=== PATIENT | female | born 1980 | race Caucasian/White ===

== ENCOUNTER 2018-03-17 21:02 | Emergency (ER) | payer SELFPAY ==
[2018-03-17 21:06] VITALS: BP 116/74; PULSE 84; RESP 15; TEMP 36.9; O2SAT 98
--- NOTE | 2018-03-17 21:40 | ED.GENADUL_ITS ---
Discharge Plan Discharge Details Chief Complaint: Headache Clinical Impression: Superficial swelling of scalp, Headache Reason For Visit: HEAD SWELLING Primary Care Provider: NONE,NONE ED Provider: Alexx Marroquin Disposition Patient Disposition: HOME Condition: Good Home Meds and New Rx's Prescriptions: Continue ascorbic acid (vitamin C) [Vitamin C] 500 mg Tablet 500 mg PO DAILY RF: 0 vitamin J07-gdhju acid 500-400 mcg Tablet 1 tab PO DAILY RF: 0 Discharge Instructions Additional Instructions: You may use Tylenol or Motrin as needed for discomfort. We will have care management work with you to get your primary care follow-up. Return to ED for fever, neurologic changes, worsening swelling/pain. Referrals: Care Management [Provider Group] Medical Decision Making <Arturo Brock NP - Last Filed: 03/17/18 22:00> MDM Narrative Medical decision making narrative: Patient presenting to the emergency department for chief complaint of scalp swelling and headache for the past 3 days. Patient denies any injury or trauma and states that it started out feeling like a small knot on her right frontal scalp and then over the last 3 days has grown in size and that she also noted some swelling to the left superior parietal area of the scalp. Patient denies any systemic systemic symptoms including fever chills, weight gain or weight loss, chest pain, shortness of breath, visual change, focal neurological deficits. Physical exam is unremarkable except for significant noted swelling to the right frontal scalp and left superior parietal scalp. Thorough evaluation to the hair revealed no signs of insect bite, no abscess, no erythema. There is of swelling are easily appreciated and palpable especially right frontal scalp. Physical exam is otherwise unremarkable and no other findings are noted. Given on nature that does not completely correlate with abscess, insect bite, or any trauma I do feel that CT imaging of the head is warranted. Given the patient has no other symptoms decided to defer labs unless needed or abnormalities are noted of significance on CT scan. HPI - General Adult <Arturo Brock NP - Last Filed: 03/17/18 22:00> General Mode of arrival: ambulatory . Date/Time Provider Initiated Documentation: 03/17/18 21:12 . Limitations to Documentation: no limitations . Information obtained by: patient . History of Present Illness 37 year old F presents to the emergency department with the chief complaint of swelling/headache, described as mild, with intensity rated at 5. Quality is described as aching, and is localized to the head. Patient reports no radiation. Patient started experiencing this day(s) (3) and it has been constant. No relieving factors improve symptom(s), No exacerbating factors reported . Patient notes no other symptoms.. Patient did receive the following treatments prior to arrival, NSAID Related Data Home Medications Medication Instructions Recorded Confirmed ascorbic acid (vitamin C) [Vitamin 500 mg PO DAILY 03/17/18 03/17/18 C] vitamin U71-sfzvp acid 1 tab PO DAILY 03/17/18 03/17/18 Allergies Allergy/AdvReac Type Severity Reaction Status Date / Time No Known Allergies Allergy Unverified 03/17/18 21:11 General Stated Complaint: Headache RAMIN: 3 Review of Systems <Arturo Brock NP - Last Filed: 03/17/18 22:00> Constitutional Denies body ache(s), Denies chills, Denies daytime sleepiness, Denies fatigue, Denies fever(s), Denies frequent falls, Reports headache(s) and Denies weakness Eyes Patient Reports system reviewed and no additional complaints, except as docu ENT Denies vertigo, Denies dizziness and Reports headache(s) Cardiovascular Denies chest pain and Denies syncope Respiratory Reports system reviewed and no additional complaints, except as docu and Denies cough Gastrointestinal Denies abdominal pain, Denies nausea and Denies vomiting Musculoskeletal Denies abnormal gait, Denies numbness and Denies tingling Integumentary/Breasts Reports skin swelling (Right forehead left posterior scalp) Neurologic Denies abnormal gait, Denies behavioral changes, Denies confusion, Denies vertigo, Denies dizziness, Denies syncope, Denies frequent falls, Reports headache(s), Denies lack of coordination, Denies focal weakness, Denies numbness , Denies tingling and Denies weakness Psychiatric Denies behavioral changes and Denies confusion Endocrine Denies fatigue Exam <Arturo Brock NP - Last Filed: 03/17/18 22:00> Const General: cooperative, healthy appearing, comfortable, no acute distress, well groomed, not diaphoretic and not ill appearing Nutritional Appearance: thin Orientation: alert, awake and oriented x3 Limitations: mental status not altered [facility] Head: no palpable skull fracture, atraumatic, no abrasions, no Negro's sign, no hematomas, no scalp lesions, scalp tenderness (To palpation of areas of swelling), no temporal artery tenderness and No periorbital ecchymosis Ears: hearing grossly normal bilaterally General nose exam: external nose normal Mouth: oral mucosae normal Throat: posterior oropharynx normal Eyes General: appearance normal, both eyes and all related structures Visual Mobley: normal visual mobley by confrontation Alignment and Position: alignment normal and alignment abnormal Periorbital: periorbital findings normal Eyelids: eyelids normal Pupils: PERRL EOM: EOM intact bilaterally Neck Neck: normal visual inspection, full ROM and lymphadenopathy noted Resp Effort & Inspection: normal respiratory effort, able to speak in complete sentences and no respiratory distress Skin General skin exam: no rashes or lesions noted, no ecchymosis and no erythema Rashes: no rashes Trauma: no lacerations or abrasions Wounds: no wounds Hair: normal Neuro General: oriented x3, moves all extremities, no meningeal signs, no focal motor deficits and CN's II-XI intact bilaterally Cranial Nerves: CN's II-XI intact bilaterally and PERRL Cognition: normal cognition Speech: speech normal Gait: normal gait Motor: muscle tone normal throughout and strength 5/5 throughout Extrem General: normal to inspection Course <Arturo Brock NP - Last Filed: 03/17/18 22:00> Vital Signs Temperature 36.9 C 03/17/18 21:06 Pulse 84 03/17/18 21:06 Respiratory Rate 15 03/17/18 21:06 Blood Pressure 116/74 03/17/18 21:06 Pulse Oximetry 98 03/17/18 21:06 Temperature 36.9 C 03/17/18 21:06 Pulse 84 03/17/18 21:06 Respiratory Rate 15 03/17/18 21:06 Blood Pressure 116/74 03/17/18 21:06 Pulse Oximetry 98 03/17/18 21:06 Sign Out <Arturo Brock NP - Last Filed: 03/17/18 22:00> Sign Out Data: Sign Out Comment: Pending CT imaging of the head and radiologist interpretation patient was signed out to Dr. Marroquin for revision of imaging, disposition of patient, any further treatment or stabilization is required. Physical exam was discussed with him along patient complained. Last updated by Arturo Brock NP at 03/17/18 21:57 Post-Handoff Eval: Patient's head CT is being read by radiology as unremarkable and normal soft tissues. There is no evidence of hematoma, abscess, infection, bony involvement. Brain is normal. Patient clearly does have some sort of edematous process going on but it is unclear what. Will refer her to primary care, which she does not have, so case management will need to be involved. If swelling does not resolve or continues will need further evaluation but at this point she appears safe and stable for discharge. We will have her use Tylenol or Motrin for discomfort.
--- NOTE | 2018-03-17 22:01 | DI.CT_ITS ---
SYMPTOMS/DIAGNOSIS: HEADACHE, SKULL SWELLING, NO KNOWN TRAUMA NONCONTRAST HEAD CT: No intracranial hemorrhage, mass or infarct is seen. There is no evidence of skull fracture. The ventricles are normal in size. The visualized portions of the sinuses and mastoid air cells appear clear. IMPRESSION: Negative head CT.
--- NOTE | 2018-03-17 22:12 | DI.VRAD_ITS ---
EXAM: CT Head Without Intravenous Contrast CLINICAL HISTORY: 37 years old, female; Signs and symptoms; Mass, lump, or localized swelling; Head or scalp; Patient HX: Headache, skull swelling - no known trauma TECHNIQUE: Axial computed tomography images of the head/brain without intravenous contrast. All CT scans at this facility use at least one of these dose optimization techniques: automated exposure control; mA and/or kV adjustment per patient size (includes targeted exams where dose is matched to clinical indication); or iterative reconstruction. Coronal and sagittal reformatted images were created and reviewed. COMPARISON: No relevant prior studies available. FINDINGS: Brain: Unremarkable. No hemorrhage. No significant white matter disease. No edema. Ventricles: Unremarkable. No ventriculomegaly. Bones/joints: Unremarkable. No acute fracture. Soft tissues: Unremarkable. Sinuses: Unremarkable as visualized. No acute sinusitis. Mastoid air cells: Unremarkable as visualized. No mastoid effusion. IMPRESSION: Normal head/brain CT. Dictated and Authenticated by: Iván Duffy MD. Ordering:KIMMIE CASE MD
== END 2018-03-17 22:38 | disposition home or self-care (01) ==
PROVIDERS: Emergency Provider Emergency Medicine
DX: R51 Headache (principal); R22.0 Localized swelling, mass and lump, head
CPT/HCPCS: 99284; 70450; 99281

== ENCOUNTER 2018-07-13 15:29 | Emergency (ER) | payer SELFPAY ==
[2018-07-13 15:37] VITALS: BP 117/66; PULSE 95; RESP 16; TEMP 36.6; O2SAT 100
--- NOTE | 2018-07-13 15:59 | DI.RAD_ITS ---
SYMPTOM/DIAGNOSIS: TRAUMA, CRUSH INJURY, PAIN LEFT THUMB: There is a soft tissue defect. There is a nondisplaced fracture of the tuft of the distal phalanx of the thumb. No foreign body is seen. IMPRESSION: Nondisplaced tuft fracture of the thumb.
--- NOTE | 2018-07-13 16:47 | DI.VRAD_ITS ---
EXAM: XR Left Finger(s), 2 or More Views EXAM DATE/TIME: 07/13/2018 4:16 PM CLINICAL HISTORY: 38 years old, female; Injury or trauma; Injury history: Wood splitter/crush; Initial encounter; Crushing; Finger; Left; Thumb; Injury date: 07/13/2018 TECHNIQUE: XR Left finger minimum 2 views. COMPARISON: No relevant prior studies available. FINDINGS: Bones/joints: Compound nondisplaced fracture of the thumb distal phalanx terminal tuft. No dislocation. Normal bone density. Soft tissues: Swelling and laceration of the thumb soft tissues. IMPRESSION: 1. Crush injury to the soft tissues of the left thumb. 2. Compound nondisplaced fracture of the distal phalanx terminal. Dictated and Authenticated by: Jordan Giron MD. Ordering:KIMMIE Morris MD
[2018-07-13] MEDS: Cephalexin 500 MG CAP PO (18:23)
[2018-07-13] MEDS: Lidocaine 2% Multi-Dose 20 ML VIAL IJ (18:24)
--- NOTE | 2018-07-13 18:41 | W.ED.GENAD ---
Discharge Plan Disposition Patient Disposition: HOME Condition: Stable Discharge Details Chief Complaint: Orthopedic Clinical Impression: Open fracture of left thumb Reason For Visit: left thumb / wood splitter Primary Care Provider: None,None ED Provider: Arturo Brock Home Meds and New Rx's Prescriptions: No Action ascorbic acid (vitamin C) [Vitamin C] 500 mg Tablet 500 mg PO DAILY RF: 0 vitamin V75-juzwq acid 500-400 mcg Tablet 1 tab PO DAILY RF: 0 Discharge Instructions Instructions: Thumb Fracture (ED) Additional Instructions: Please take antibiotic as prescribed and leave dressing on for the first 48 hours. After then you may remove dressing and keep wound clean and dry. Return to the emergency department for any new or significant worsening of symptoms otherwise call orthopedic office for arrangement of close follow-up appointment. You should return to the emergency department in 12 days for suture removal unless this will be performed by orthopedist. Referrals: Jose L Espinal MD [ [facility] STAFF PHYSICIAN] - (Call the office on Sunday morning for arrangement of follow-up appointment with orthopedist) Discharge Data Discharge Date/Time-TO BE ENTERED AT DEPARTURE: 07/13/18 19:30 Medical Decision Making Patient presenting the emergency department for chief complaint of crush injury to left thumb. Patient was splitting wood when her finger got in a wood splitter. X-ray imaging was ordered and shows a distal phalanx fracture. Patient has intact tendons along with two-point discrimination and appropriate cap refill. patient and gave verbal consent towards wound closure. Total of 7 mL's of 2% lidocaine was injected into the base of the thumb until appropriate anesthetic level was achieved. Patient has 6 cm irregular bordered laceration along with a 2 cm laceration. Wound was visualized to base in a bloodless field and irrigated thoroughly with copious amounts of sterile saline. No evidence of foreign body was noted 11 simple interrupted 4-0 Prolene, along with 7 4-0 Prolene for a total of 18 sutures. Wound was covered with sterile dressing and bacitracin applied. Patient was instructed to keep wound clean and dry. Patient placed up on Keflex 4 times daily for 3 days for prophylactic coverage of open distal phalanx fracture. Patient encouraged to return for any new or worsening symptoms otherwise follow-up with orthopedist for reassessment and return for suture removal. HPI General Mode of arrival: ambulatory. Date/Time Provider Initiated Documentation: 07/13/18 15:47. Limitations to Documentation: no limitations. Information obtained by: patient and RN notes reviewed. History of Present Illness 38 year old F presents to the emergency department with the chief complaint of Left thumb injury, described as moderate, with intensity rated at 4. Quality is described as sharp, and is localized to the left and upper extremity. Patient started experiencing this hour(s) (1) and it has been constant. No relieving factors improve symptom(s), Movement worsens symptoms . Patient notes no other symptoms.. Patient did receive the following treatments prior to arrival, none Related Data Home Medications Medication Instructions Recorded Confirmed ascorbic acid (vitamin C) [Vitamin 500 mg PO DAILY 03/17/18 03/17/18 C] vitamin K91-erfeg acid 1 tab PO DAILY 03/17/18 03/17/18 Allergies Allergy/AdvReac Type Severity Reaction Status Date / Time No Known Allergies Allergy Unverified 03/17/18 21:11 General Stated Complaint: Orthopedic RAMIN: 3 Review of Systems Cardiovascular Denies syncope Musculoskeletal Reports as per HPI, Reports deformity, Denies numbness and Reports tingling Integumentary/Breasts Reports wounds Neurologic Denies syncope, Denies numbness and Reports tingling PFSH Social History Smoking/Tobacco Use Status: Never Exam Const General: cooperative and no acute distress Orientation: alert, awake and oriented x3 Resp Effort & Inspection: normal respiratory effort and able to speak in complete sentences Cardio Rate: regular rate Rhythm: regular rhythm Extrem Left upper extremity: hand Details: normal capillary refill, neuromotor exam normal, neurosensory exam normal, tendon exam normal, tenderness Location: of the thumb, vascular exam Details: radial pulse present and normal capillary refill, normal ROM of fingers, swelling Location: of the thumb and laceration (2 lacerations to the palmar aspect of the thumb) Course Vital Signs Temperature 36.6 C 07/13/18 15:37 Pulse 95 H 07/13/18 15:37 Respiratory Rate 16 07/13/18 15:37 Blood Pressure 117/66 07/13/18 15:37 Pulse Oximetry 100 07/13/18 15:37 Temperature 36.6 C 07/13/18 15:37 Temperature Source Temporal Artery Scan 07/13/18 15:37 Pulse 95 H 07/13/18 15:37 Respiratory Rate 16 07/13/18 15:37 Respiratory Effort 07/13/18 15:42 Blood Pressure 117/66 07/13/18 15:37 Blood Pressure Position Supine 07/13/18 15:37 Pulse Oximetry 100 07/13/18 15:37 Oxygen Delivery Method Room Air 07/13/18 15:37 Oxygen Flow Rate 0 07/13/18 15:37 Pain Level 4 07/13/18 18:19 Procedures Laceration Laceration 1: Site: hand Side (If applicable): left Size (cm): 6 Description: stellate, irregular and clean Depth: simple, single layer Local Anesthetic: Lidocaine 2% (Digital block) Amount of anesthesia used (mL): 7 Pre-repair: wound explored, irrigated extensively, deep structures intact and wound margins revised Skin layer closed with: nylon Size (cm): 4-0 Number of sutures: 11 Technique: simple, interrupted Laceration 2: Site: hand Side (If applicable): left Size (cm): 2 Description: irregular and clean Depth: simple, single layer Pre-repair: wound explored, irrigated extensively and deep structures intact Skin layer closed with: nylon Size (cm): 4-0 Number of sutures: 7 Technique: simple, interrupted
--- NOTE | 2018-07-13 19:08 | ED.GENADUL_ITS ---
Discharge Plan Disposition Patient Disposition: HOME Condition: Stable Discharge Details Chief Complaint: Orthopedic Clinical Impression: Open fracture of left thumb Reason For Visit: left thumb / wood splitter Primary Care Provider: None,None ED Provider: Arturo Brock Home Meds and New Rx's Prescriptions: No Action ascorbic acid (vitamin C) [Vitamin C] 500 mg Tablet 500 mg PO DAILY RF: 0 vitamin O07-vsksw acid 500-400 mcg Tablet 1 tab PO DAILY RF: 0 Discharge Instructions Instructions: Thumb Fracture (ED) Additional Instructions: Please take antibiotic as prescribed and leave dressing on for the first 48 hours. After then you may remove dressing and keep wound clean and dry. Return to the emergency department for any new or significant worsening of symptoms otherwise call orthopedic office for arrangement of close follow-up appointment. You should return to the emergency department in 12 days for suture removal unless this will be performed by orthopedist. Referrals: Jose L Espinal MD [ [facility] STAFF PHYSICIAN] - (Call the office on Sunday morning for arrangement of follow-up appointment with orthopedist) Discharge Data Discharge Date/Time-TO BE ENTERED AT DEPARTURE: 07/13/18 19:30 Medical Decision Making Patient presenting the emergency department for chief complaint of crush injury to left thumb. Patient was splitting wood when her finger got in a wood splitter. X-ray imaging was ordered and shows a distal phalanx fracture. Patient has intact tendons along with two-point discrimination and appropriate cap refill. patient and gave verbal consent towards wound closure. Total of 7 mL's of 2% lidocaine was injected into the base of the thumb until appropriate anesthetic level was achieved. Patient has 6 cm irregular bordered laceration along with a 2 cm laceration. Wound was visualized to base in a bloodless field and irrigated thoroughly with copious amounts of sterile saline. No evidence of foreign body was noted 11 simple interrupted 4-0 Prolene, along with 7 4-0 Prolene for a total of 18 sutures. Wound was covered with sterile dressing and bacitracin applied. Patient was instructed to keep wound clean and dry. Patient placed up on Keflex 4 times daily for 3 days for prophylactic coverage of open distal phalanx fracture. Patient encouraged to return for any new or worsening symptoms otherwise follow-up with orthopedist for reassessment and return for suture removal. HPI General Mode of arrival: ambulatory . Date/Time Provider Initiated Documentation: 07/13/18 15:47 . Limitations to Documentation: no limitations . Information obtained by: patient and RN notes reviewed . History of Present Illness 38 year old F presents to the emergency department with the chief complaint of Left thumb injury, described as moderate, with intensity rated at 4. Quality is described as sharp, and is localized to the left and upper extremity. Patient started experiencing this hour(s) (1) and it has been constant. No relieving factors improve symptom(s), Movement worsens symptoms . Patient notes no other symptoms.. Patient did receive the following treatments prior to arrival, none Related Data Home Medications Medication Instructions Recorded Confirmed ascorbic acid (vitamin C) [Vitamin 500 mg PO DAILY 03/17/18 03/17/18 C] vitamin O74-bgeht acid 1 tab PO DAILY 03/17/18 03/17/18 Allergies Allergy/AdvReac Type Severity Reaction Status Date / Time No Known Allergies Allergy Unverified 03/17/18 21:11 General Stated Complaint: Orthopedic RAMIN: 3 Review of Systems Cardiovascular Denies syncope Musculoskeletal Reports as per HPI, Reports deformity, Denies numbness and Reports tingling Integumentary/Breasts Reports wounds Neurologic Denies syncope, Denies numbness and Reports tingling PFSH Social History Smoking/Tobacco Use Status: Never Exam Const General: cooperative and no acute distress Orientation: alert, awake and oriented x3 Resp Effort & Inspection: normal respiratory effort and able to speak in complete sentences Cardio Rate: regular rate Rhythm: regular rhythm Extrem Left upper extremity: hand Details: normal capillary refill, neuromotor exam normal, neurosensory exam normal, tendon exam normal, tenderness Location: of the thumb, vascular exam Details: radial pulse present and normal capillary refill, normal ROM of fingers, swelling Location: of the thumb and laceration (2 lacerations to the palmar aspect of the thumb) Course Vital Signs Temperature 36.6 C 07/13/18 15:37 Pulse 95 H 07/13/18 15:37 Respiratory Rate 16 07/13/18 15:37 Blood Pressure 117/66 07/13/18 15:37 Pulse Oximetry 100 07/13/18 15:37 Temperature 36.6 C 07/13/18 15:37 Temperature Source Temporal Artery Scan 07/13/18 15:37 Pulse 95 H 07/13/18 15:37 Respiratory Rate 16 07/13/18 15:37 Respiratory Effort 07/13/18 15:42 Blood Pressure 117/66 07/13/18 15:37 Blood Pressure Position Supine 07/13/18 15:37 Pulse Oximetry 100 07/13/18 15:37 Oxygen Delivery Method Room Air 07/13/18 15:37 Oxygen Flow Rate 0 07/13/18 15:37 Pain Level 4 07/13/18 18:19 Procedures Laceration Laceration 1: Site: hand Side (If applicable): left Size (cm): 6 Description: stellate, irregular and clean Depth: simple, single layer Local Anesthetic: Lidocaine 2% (Digital block) Amount of anesthesia used (mL): 7 Pre-repair: wound explored, irrigated extensively, deep structures intact and wound margins revised Skin layer closed with: nylon Size (cm): 4-0 Number of sutures: 11 Technique: simple, interrupted Laceration 2: Site: hand Side (If applicable): left Size (cm): 2 Description: irregular and clean Depth: simple, single layer Pre-repair: wound explored, irrigated extensively and deep structures intact Skin layer closed with: nylon Size (cm): 4-0 Number of sutures: 7 Technique: simple, interrupted
[2018-07-13] MEDS: HYDROcodone 5/Acetaminophen 325 TAB PO (19:16)
[2018-07-13] MEDS: Cephalexin 500 MG CAP 1500 MG PO (19:16)
--- NOTE | 2018-07-18 13:29 | CMPROGNOTE_ITS ---
Care Management Progress Note RIDDHI received page from [employer], support person reporting Rosenda has been awaiting wound consult follow up call since 07/15/18. CM spoke with Rosenda who reported confusion around her discharge instructions and shared she soaked her dressing in Epsom Salt because the dressing was glued to her wound. She also shared that she had a follow up appointment at Orthopedics on 07/24/18 per a voicemail she received but shared she has been unable to talk to someone at the office there, as well. CM notified Berenice, ED CM and [facility] [employer] of above information.
== END 2018-07-13 19:30 | disposition home or self-care (01) ==
PROVIDERS: Emergency Provider Nurse Practitioner Family
DX: S67.02XA Crushing injury of left thumb, initial encounter (principal); S62.525B Nondisplaced fracture of distal phalanx of left thumb, initial encounter for open fracture; W23.0XXA Caught, crushed, jammed, or pinched between moving objects, initial encounter; Y93.49 Activity, other involving dancing and other rhythmic movements
CPT/HCPCS: 12004; 29130; 99284; 73140; 99283; J3490

== ENCOUNTER 2019-12-31 12:55 | Outpatient (CLI) | payer SELFPAY ==
[2020-01-01 09:59] LABS: Lyme Ab w Rflx to Lyme Confirm Negative (Negative)
== END 2019-12-31 13:15 ==
PROVIDERS: PCP Nurse Practitioner Family; Visit Provider Nurse Practitioner Family
DX: M25.561 Pain in right knee (principal)
CPT/HCPCS: 36415; 86618